=== PATIENT | male | born 1945 | race Caucasian/White ===

== ENCOUNTER 2017-03-01 08:41 | Emergency (ER) | payer MEDICARE, OTHER ==
--- NOTE | ~2017-03-01 | ER ---
PATIENT'S NAME: CINDY REAL [facility] AGE: 71 Y [address] ROOM: [place] [address] LOCATION: ED ADMIT DATE: 03/01/2017 ER/Outpatient Report DISCHARGE DATE: 03/01/2017 FAMILY PHYSICIAN: Physician, Unknown ATTENDING PHYSICIAN: Lisset Rao Admission date and time documented in medical record. I saw the patient at 0850 hours. CHIEF COMPLAINT: Loss of vision in the medial inferior quadrant of his right eye. HISTORY OF PRESENT ILLNESS: This patient is a 71-year-old male who states that he was out in the yard yesterday afternoon and evening. He came and had a little bit cloudiness in his right visual field involving the inner or medial inferior quadrant that improved. He went to bed, woke up this morning around 0630 hours and had a loss of vision in the medial inferior quadrant of the right eye. No pain in his eye. No double vision. No recent coughs, colds, flus, fever, chills, or sweats. Denies any fall or trauma. Nothing hit his eyes yesterday. He has had no previous problems with his vision. Presented to the emergency room for evaluation. HOME MEDICATIONS: See attached medication list. ALLERGIES: NONE. SOCIAL HISTORY: Nonsmoker, nondrinker. SIGNIFICANT PAST MEDICAL HISTORY: Seasonal allergies, elevated cholesterol, hypertension. OPERATIONS: None. REVIEW OF SYSTEMS: All systems reviewed by me are negative with exception of those discussed in the history of present illness. PHYSICAL EXAMINATION: VITAL SIGNS: Temperature 97.5, pulse 73, respirations 18, blood pressure 156/81, O2 saturation on room air is 96%. PATIENT'S NAME: CINDY REAL [facility] AGE: 71 Y [address] ROOM: [place] [id number] LOCATION: [facility] ADMIT DATE: 03/01/2017 ER/Outpatient Report DISCHARGE DATE: 03/01/2017 FAMILY PHYSICIAN: Physician, Unknown ATTENDING PHYSICIAN: Lisset Rao HEAD: Normocephalic. EYES: Extraocular muscles intact. 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 Fundi from what I can see everything looked intact. The patient does have a visual field defect right eye, medial inferior quadrant. Visual field in the left eye is normal. EARS: Clear TMs bilaterally. NOSE: Clear. THROAT: Clear. Mucous membranes moist. Teeth and jaw intact. NECK: No nuchal rigidity. No thyromegaly or cervical adenopathy. No carotid bruits. LUNGS: Clear. HEART: Regular. ABDOMEN: Soft, nontender. Good bowel tones. EXTREMITIES: Moves all 4 extremities. No peripheral edema, cyanosis, or deformity. NEUROVASCULAR: Intact. SKIN: Clear. No skin eruptions or rash. DIAGNOSTIC DATA: EKG showed sinus rhythm. No acute ST elevation, ischemic change, or arrhythmia. LABORATORY DATA: White count is 5700, 61 segs, 30 lymphs, 6 monos, 2 eos, 1 baso. Hemoglobin was 16.3, hematocrit 48.4, platelet count is 164,000, PTT was 27, pro-time is 10.7, INR 1.02. CMS was normal except for an elevated glucose 109, low calcium of 8.3, CPK was 395. CK-MB was 9.5, troponin was normal less than 0.04. I did speak with Dr. Kemp, neurologist. Dr. Kemp thought this probably more of an eye problem, not a neurological problem. I did talk with Dr. Guzman, data processing manager. Dr. Guzman is coming into the emergency room to evaluate the patient. We will proceed on her recommendations. She thought this could be a retinal detachment. IMPRESSION: Visual field defect, right eye, involving the medial inferior quadrant. Etiology uncertain. Need to rule out retinal detachment. PLAN: We will await Dr. Guzman's evaluation and proceed on her recommendations. LISSET RAO MD PATIENT'S NAME: CINDY REAL [facility] AGE: 71 Y [address] ROOM: [place], [place] [address] LOCATION: [facility] ADMIT DATE: 03/01/2017 ER/Outpatient Report DISCHARGE DATE: 03/01/2017 FAMILY PHYSICIAN: Physician, Unknown ATTENDING PHYSICIAN: Lisset Rao SDS/modl /[id number] d: 03/01/17 1247 t: 03/02/17 1837, OUTPATIENT REPORT
[2017-03-01 09:20] LABS: BASOPHIL % 0.5 %; EOSINOPHIL # 0.1 K/uL (0.0-0.5); EOSINOPHIL % 2.3 %; HEMATOCRIT 48.4 % (37.0-53.0); HEMOGLOBIN 16.3 g/dL (11.0-16.0); IMMATURE GRANULOCYTE % 0.2 %; LYMPHOCYTE # 1.7 K/uL (0.8-4.0); LYMPHOCYTE % 29.5 %; MCH 30.8 pg (27.0-34.0); MCHC 33.7 gm/dL (32.0-36.5); MCV 91.3 fl (83.0-98.0); MONOCYTE # 0.4 K/uL (0.0-1.0); MONOCYTE % 6.4 %; MPV 10.6 fl (9.4-12.4); NEUTROPHIL # (ANC) 3.5 K/uL (1.4-9.0); NEUTROPHIL % 61.1 %; NRBC % 0 /100WBC (0-0.00); PLATELET COUNT 164 K/uL (150-450); WBC 5.7 K/uL (4.0-11.0)
[2017-03-01 09:28] LABS: INR - (THERAPEUTIC) 1.02 (0.92-1.07); PROTIME 10.7 SECONDS (9.8-11.4); PTT 27 SECONDS (25-32)
[2017-03-01 09:38] LABS: ALBUMIN 4.1 gm/dL (3.5-5.0); ALK PHOS 60 IU/L (33-138); ALT 28 IU/L (12-78); ANION GAP 11.9 (10.0-19.0); AST 29 IU/L (10-40); BLOOD UREA NITROGEN 22 mg/dL (6-24); CALCIUM 8.3 mg/dL (8.5-10.5); CHLORIDE 108 mMol/L (96-110); CO2 25 mMol/L (22-32); CPK 395 IU/L (35-332); CREATININE 1.1 mg/dL (0.6-1.3); ESTIMATED GFR (MDRD EQUATION) > 60; POTASSIUM 3.9 mMol/L (3.7-5.1); SODIUM 141 mMol/L (135-145); TOTAL PROTEIN 7.1 g/dL (6.0-8.4)
[2017-03-01 11:30] LABS: CPK 368 IU/L (35-332)
== END 2017-03-01 11:39 | disposition disaster alternative care site (69) ==
LOC: GMED 08:41
PROVIDERS: Emergency Medicine
DX: H53.451 Other localized visual field defect, right eye (principal); I10 Essential (primary) hypertension; E78.00 Pure hypercholesterolemia, unspecified